=== PATIENT | female | born 1945 | race Caucasian/White ===

== ENCOUNTER 2018-09-11 08:50 | Day surgery (SDC) | payer MEDICARE, OTHER, SELFPAY ==
[2018-09-10 09:53] VITALS: BMI 42.0
[2018-09-11 09:24] LABS: Hematocrit 35.9 % (37-47); Hemoglobin 11.4 g/dl (12.0-15.0); Mean Corp Hgb Conc 31.8 g/gl (32-36); Mean Corpuscular Hgb 28.6 pg (27.0-32.0); Mean Corpuscular Volume 90.2 fL (81-99); Mean Platelet Vol. 11.4 fl (6.2-12.0); Platelet Count 195 K/mm3 (150-450); RBC Distribution Width CV 15.1 % (11.6-14.6); RBC Distribution Width SD 48.9 fl (35.1-43.9); Red Blood Count 3.98 M/mm3 (4.2-5.4)
[2018-09-11 09:26] LABS: Scan Indicated on CBC? Y/N NO
[2018-09-11 09:35] LABS: International Normalized Ratio 1.4; Partial Thromboplast Time 37.5 Seconds (24.1-36.2); Prothrombin Time (Protime)PT. 17.3 SECONDS (11.7-14.9)
[2018-09-11 09:46] LABS: Albumin, Serum 3.6 g/dL (3.2-5.0); BUN 46 mg/dL (7-18); BUN/Creat Ratio 7.2 RATIO (10-20); Calcium,Total 8.2 mg/dL (8.5-10.1); Chloride 96 mmol/L (98-107); Creatinine, Serum 6.43 mg/dL (0.55-1.02); EST Glomerular Filtration Rate 7 mL/min (>60); Est Glom Filt Rate - Afr Amer 8 mL/min (>60); Estimated Creatinine Clearance 6.63 ml/min; Glucose 180 mg/dL (74-106); Phosphorus 2.6 mg/dL (2.5-4.9); Potassium 3.3 mmol/L (3.5-5.1); Sodium Level 135 mmol/L (136-145)
--- NOTE | 2018-09-11 11:54 | PCM.OPRPT ---
Problem List (1) ESRD on hemodialysis Status: Acute (2) Malfunction of arteriovenous dialysis fistula Status: Acute Report of Operation Date of Procedure: 09/11/18 Pre-Operative Diagnosis: Malfunction AV fistula Post-Operative Diagnosis: The same Surgery/Procedure Performed:: 1. Ultrasound-guided access antegrade right AV fistula. #2 fistulogram with central venous imaging. #3 balloon venoplasty from the fistula to the graft with a 7 and 8 mm balloon. #4 balloon angioplasty from the graft to the outflow cephalic vein with an 8 mm balloon. 5. Balloon angioplasty proximal subclavian and innominate with a 10 and 12 mm balloon. Type of Anesthesia:: Sedation,Conscious Description of Procedure: Patient brought to the Contract Negotiation Specialist. Underwent the appropriate timeout consent.Underwent sedation. Prepped and draped in a sterile fashion. We then did ultrasound-guided access antegrade into the AV fistula below the area of the first narrowing. We got a Glidewire up put into sheath and then did a fistulogram. This showed moderate stenosis from the [place] fistula into the graft and then also from the graft back to the [place] fistula. We gave 3000 units of heparin. We ballooned both the segment with an 8 x 4 balloon for over 2-1/2 minutes. It was improved with better flow through the segments. We then image centrally in the proximal subclavian with severe stenosis and then also went near subtotal occlusion with severe stenosis in the mid innominate vein. Using the Kum[place] catheter and Glidewire we got through these 2 lesions. We then balloon them separately with a 10 mm balloon each for over 2 minutes. We then ballooned from the subclavian but mostly through the innominate lesion with a 12 mm balloon for over 3 minutes. Completion did show better flow through these areas. We then reimaged the lower area from the [place] fistula to the graft and re-ballooned that with a 7 x 2 balloon. Completion was better with some improved flow through it. We put a U stitch and then removed out the sheath held pressure with good hemostasis. Patient brought recovery stable condition. Sedation: This 72-year-old female underwent moderate sedation given by Dr. Lonnie Chavez. She has moderate EKG blood pressure and pulse ox. She is nonverbal to 30 minutes of the procedure. See the EMR for the complete record
--- NOTE | 2018-09-11 11:58 | OP.PCM_ITS ---
Problem List (1) ESRD on hemodialysis Status: Acute (2) Malfunction of arteriovenous dialysis fistula Status: Acute Report of Operation Date of Procedure: 09/11/18 Pre-Operative Diagnosis: Malfunction AV fistula Post-Operative Diagnosis: The same Surgery/Procedure Performed:: 1. Ultrasound-guided access antegrade right AV fistula. #2 fistulogram with central venous imaging. #3 balloon venoplasty from the fistula to the graft with a 7 and 8 mm balloon. #4 balloon angioplasty from the graft to the outflow cephalic vein with an 8 mm balloon. 5. Balloon angioplasty proximal subclavian and innominate with a 10 and 12 mm balloon. Type of Anesthesia:: Sedation,Conscious Description of Procedure: Patient brought to the Pocketed Spring Machine Operator. Underwent the appropriate timeout consent.Underwent sedation. Prepped and draped in a sterile fashion. We then did ultrasound-guided access antegrade into the AV fistula below the area of the first narrowing. We got a Glidewire up put into sheath and then did a fistulogram. This showed moderate stenosis from the tribe fistula into the graft and then also from the graft back to the tribe fistula. We gave 3000 units of heparin. We ballooned both the segment with an 8 x 4 balloon for over 2-1/2 minutes. It was improved with better flow through the segments. We then image centrally in the proximal subclavian with severe stenosis and then also went near subtotal occlusion with severe stenosis in the mid innominate vein. Using the Kumpe catheter and Glidewire we got through these 2 lesions. We then balloon them separately with a 10 mm balloon each for over 2 minutes. We then ballooned from the subclavian but mostly through the innominate lesion with a 12 mm balloon for over 3 minutes. Completion did show better flow through these areas. We then reimaged the lower area from the tribe fistula to the graft and re-ballooned that with a 7 x 2 balloon. Completion was better with some improved flow through it. We put a U stitch and then removed out the sheath held pressure with good hemostasis. Patient brought recovery stable condition. Sedation: This 72-year-old female underwent moderate sedation given by Dr. Lonnie Chavez. She has moderate EKG blood pressure and pulse ox. She is nonverbal to 30 minutes of the procedure. See the EMR for the complete record
== END 2018-09-11 13:00 | disposition home or self-care (01) ==
PROVIDERS: Referring Provider Surgery Vascular Surgery; Visit Provider Surgery Vascular Surgery
DX: T82.510A Breakdown (mechanical) of surgically created arteriovenous fistula, initial encounter (principal); T82.858D Stenosis of other vascular prosthetic devices, implants and grafts, subsequent encounter; I12.0 Hypertensive chronic kidney disease with stage 5 chronic kidney disease or end stage renal disease; N18.6 End stage renal disease; D63.8 Anemia in other chronic diseases classified elsewhere; E78.00 Pure hypercholesterolemia, unspecified; K21.9 Gastro-esophageal reflux disease without esophagitis; E66.9 Obesity, unspecified; E11.59 Type 2 diabetes mellitus with other circulatory complications; E07.9 Disorder of thyroid, unspecified; Z85.3 Personal history of malignant neoplasm of breast; Z99.2 Dependence on renal dialysis; Z68.41 Body mass index [BMI] 40.0-44.9, adult
CPT/HCPCS: 36901; 36415; 36902; 36907; 76937; 80069; 85027; 85610; 85730; 99152; 99153; J7040; Q9967; C1725; C1769; C1894

== ENCOUNTER 2019-10-22 06:48 | Day surgery (SDC) | payer MEDICARE, OTHER, SELFPAY ==
[2018-09-10 09:53] VITALS: BMI 42.0
[2019-10-21 12:11] VITALS: BMI 42.0
[2019-10-22 07:15] LABS: Hematocrit 41.1 % (37-47); Hemoglobin 13.4 g/dL (12.0-15.0); Mean Corp Hgb Conc 32.6 g/dL (32-36); Mean Corpuscular Hgb 31.2 pg (27.0-32.0); Mean Corpuscular Volume 95.8 fL (81-99); Mean Platelet Vol. 11.2 fl (6.2-12.0); Platelet Count 179 K/mm3 (150-450); RBC Distribution Width CV 13.4 % (11.6-14.6); RBC Distribution Width SD 47.2 fl (35.1-43.9); Red Blood Count 4.29 M/mm3 (4.2-5.4); White Blood Count 6.4 K/mm3 (4.4-11.0)
[2019-10-22 07:39] LABS: Albumin, Serum 2.9 g/dL (3.2-5.0); BUN 39 mg/dL (7-18); BUN/Creat Ratio 7.9 RATIO (10-20); Calcium,Total 9.6 mg/dL (8.5-10.1); Chloride 99 mmol/L (98-107); Creatinine, Serum 4.91 mg/dL (0.55-1.02); EST Glomerular Filtration Rate 9 mL/min (>60); Est Glom Filt Rate - Afr Amer 11 mL/min (>60); Estimated Creatinine Clearance 8.42 ml/min; Glucose 140 mg/dL (74-106); Phosphorus 2.9 mg/dL (2.5-4.9); Potassium 4.3 mmol/L (3.5-5.1); Sodium Level 130 mmol/L (136-145)
--- NOTE | 2019-10-22 08:49 | OP.PCM_ITS ---
Problem List (1) ESRD on hemodialysis Status: Acute Report of Operation Date of Procedure: 10/22/19 Pre-Operative Diagnosis: Malfunctioning AV fistula Post-Operative Diagnosis: Same Surgery/Procedure Performed:: 1. Ultrasound-guided access antegrade right AV fistula. 2. Fistulogram with central venous imaging. 3. Balloon venoplasty AV graft AV fistula with a 7 mm balloon. 4. Balloon venoplasty of the proximal subclavian and mid innominate vein with an 8 mm and 10 mm [place] Description of Procedure: Patient brought to the Furrier Designer. Underwent appropriate timeout consent. Unde rwent no sedation. Prepped and draped in a sterile fashion. We did ultrasound- guided access antegrade into the AV fistula below the graft. Put a Glidewire up and then a 6 [place] sheath. We did a fistulogram that showed some stenosis in the AV graft to the AV fistula. We then image centrally and had a severe stenosis in the proximal subclavian and a near subtotal occlusion in the mid innominate. We got the Glidewire through these areas and then ballooned the innominate with an 8 mm balloon for over a minute and a half and then the subclavian area for a minute and a half. She had some discomfort so we did another imaging that showed it to be improved and intact. We then ballooned both of these with a 10 mm [place] each for over a minute and a half. Completion was much improved with better flow noted through here. We then imaged back on the area of the fistula and graft and ballooned through the mid graft and the graft to fistulous outflow anastomosis. This is with a 7 x 100 balloon and ballooned it for over a minute and a half. Completion was improved and there is better flow noted. We then put a U stitch removed out the sheath tied this down held pressure with good hemostasis she was then brought to recovery stable condition.
== END 2019-10-22 10:45 | disposition home or self-care (01) ==
PROVIDERS: Referring Provider Surgery Vascular Surgery; Visit Provider Surgery Vascular Surgery
DX: T82.858D Stenosis of other vascular prosthetic devices, implants and grafts, subsequent encounter (principal); I12.0 Hypertensive chronic kidney disease with stage 5 chronic kidney disease or end stage renal disease; N18.6 End stage renal disease; Z99.2 Dependence on renal dialysis; E78.00 Pure hypercholesterolemia, unspecified; Z85.3 Personal history of malignant neoplasm of breast; K21.9 Gastro-esophageal reflux disease without esophagitis; E66.9 Obesity, unspecified; E11.59 Type 2 diabetes mellitus with other circulatory complications; E07.9 Disorder of thyroid, unspecified; D63.8 Anemia in other chronic diseases classified elsewhere
CPT/HCPCS: 36415; 36902; 76937; 80069; 85027; Q9967; C1725; C1769

== ENCOUNTER 2019-12-17 06:30 | Day surgery (SDC) | payer MEDICARE, OTHER, SELFPAY ==
[2019-10-21 12:11] VITALS: BMI 42.0
[2019-12-16 08:35] VITALS: BMI 42.0
[2019-12-17 06:51] LABS: Hematocrit 24.5 % (37-47); Hemoglobin 7.8 g/dL (12.0-15.0); Mean Corp Hgb Conc 31.8 g/dL (32-36); Mean Corpuscular Hgb 30.2 pg (27.0-32.0); Mean Platelet Vol. 10.8 fl (6.2-12.0); Platelet Count 318 K/mm3 (150-450); Red Blood Count 2.58 M/mm3 (4.2-5.4); White Blood Count 6.4 K/mm3 (4.4-11.0)
[2019-12-17 07:07] LABS: Albumin, Serum 2.6 g/dL (3.2-5.0); BUN 39 mg/dL (7-18); BUN/Creat Ratio 5.5 RATIO (10-20); Calcium,Total 8.6 mg/dL (8.5-10.1); Chloride 97 mmol/L (98-107); Creatinine, Serum 7.13 mg/dL (0.55-1.02); EST Glomerular Filtration Rate 6 mL/min (>60); Est Glom Filt Rate - Afr Amer 7 mL/min (>60); Glucose 100 mg/dL (74-106); Phosphorus 3.5 mg/dL (2.5-4.9); Potassium 4.9 mmol/L (3.5-5.1); Sodium Level 130 mmol/L (136-145)
--- NOTE | 2019-12-17 09:23 | OP.PCM_ITS ---
Problem List (1) ESRD on hemodialysis Status: Acute Report of Operation Date of Procedure: 12/17/19 Pre-Operative Diagnosis: Malfunctioning AV fistula Post-Operative Diagnosis: Same Surgery/Procedure Performed:: 1. Ultrasound-guided access antegrade right AV fistula. 2. Fistulogram with central venous imaging. 3. Balloon venoplasty from the innominate vein, through the subclavian and axillary vein with a 6 mm, 8 mm, and 10 mm balloons. Type of Anesthesia:: Sedation,Conscious Description of Procedure: Patient brought to the Adult Basic Education Instructor. Underwent appropriate timeout consent. Underwent sedation. Prepped and draped in a sterile fashion. We did ultrasound-guided access antegrade into the AV fistula on the right arm. Put a 6 Malay sheath in. Gave 3000 units of heparin. We did a fistulogram and imaged through this that showed the fistula, to the graft and then the graft back to the [place] vein anastomosis were patent and good flow. The dye was all held up and was not traveling all the way proximally. It appeared to be in a very large axillary subclavian vein with thrombus still within this. Some collateral flow around it. Appear to be obstructed with an occlusion at the probable proximal subclavian vein. We eventually able to get through this confirm we are into the innominate with good flow. We then put a stiff Glidewire and balloon through this entire area with a 6 x 200 [place] for 2 different inflations. Each inflation for over a minute and 1/2 to 2 minutes. We then balloon the area with an 8 mm balloon as well. There is improved flow through this still some narrowing at that subclavian. We then ballooned the subclavian and into the axillary with a 10 x 60 balloon with 3 different inflations. Completion now had some antegrade flow going through this but still the subclavian stenosis. We then ballooned the subclavian with a 10 x 4 Powerflex balloon for 2 minutes. Completion was improved and there is better flow going through this area. Still some chronic thrombus noted around the area. We then put a U stitch removed out the sheath and lowered her pressure with good hemostasis. Plan. We will see her back in 3 weeks with another fistulogram and probable stent the subclavian area. Try to see if she can autolyzed and improve a little bit of flow around and through this area, to limit how much we have the stent. Sedation: This 74-year-old female underwent moderate sedation given by Dr. Lonnie Chavez. She was monitored EKG blood pressure and pulse ox for over the 30 minutes of the procedure.
== END 2019-12-17 11:25 | disposition home or self-care (01) ==
PROVIDERS: Referring Provider Surgery Vascular Surgery; Visit Provider Surgery Vascular Surgery
DX: T82.858D Stenosis of other vascular prosthetic devices, implants and grafts, subsequent encounter (principal); N18.6 End stage renal disease; Z99.2 Dependence on renal dialysis; I12.0 Hypertensive chronic kidney disease with stage 5 chronic kidney disease or end stage renal disease; E66.9 Obesity, unspecified; E11.59 Type 2 diabetes mellitus with other circulatory complications; E78.00 Pure hypercholesterolemia, unspecified; Z85.3 Personal history of malignant neoplasm of breast; E07.9 Disorder of thyroid, unspecified; K21.9 Gastro-esophageal reflux disease without esophagitis; D63.8 Anemia in other chronic diseases classified elsewhere; F17.210 Nicotine dependence, cigarettes, uncomplicated
CPT/HCPCS: 36415; 36902; 36907; 76937; 80069; 85027; 99152; 99153; J7040; Q9967; C1725; C1769; C1887

== ENCOUNTER 2020-01-07 06:44 | Day surgery (SDC) | payer MEDICARE, OTHER, SELFPAY ==
[2019-12-16 08:35] VITALS: BMI 42.0
[2020-01-06 09:09] VITALS: BMI 42.0
--- NOTE | 2020-01-07 08:43 | PCM.OPRPT ---
Problem List (1) Malfunction of arteriovenous dialysis fistula Status: Acute Report of Operation Date of Procedure: 01/07/20 Pre-Operative Diagnosis: Malfunctioning AV fistula Post-Operative Diagnosis: The same Surgery/Procedure Performed:: 1. Ultrasound-guided access antegrade right AV graft. 2. Fistulogram with central venous imaging. 3. Balloon venoplasty of the subclavian to innominate vein and proximal innominate vein with an 8 mm and 10 mm balloon. Also with an 8 x 2 cutting balloon Description of Procedure: Patient brought to the Juvenile Corrections Officer. Underwent appropriate timeout consent. Underwent no sedation. Prepped and draped in a sterile fashion. We did ultrasound-guided access antegrade into the AV graft. Put a Glidewire up and then a 6 [place]altese sheath. We then did a fistulogram that showed the graft through the [place] fistula was widely patent with much better flow. There is also much better flow through the subclavian vein. Severe stenosis at the subclavian to the innominate in the mid innominate vein. We did a Glidewire down through this. We first ballooned both with a 10 x 4 balloon for over 2-1/2 minutes each inflation. There was some improved flow there with try to expand this little further. We ballooned the proximal on the subclavian with a 8 x 4 balloon over inflating it for 3 to 3-1/2 minutes. There is a little bit better flow noted. But we switched to a 7 [place]ese sheath and then an 018 wire and ballooned these areas with a cutting balloon for 4 different inflations. Each for over 2 minutes. Completion was improved there was better flow noted but still a moderate narrowing just at this focal area. Appears to be more con of into that area of the thoracic outlet and concerned about put in a stent that it would to still be pinched in there. The left it appears that it looks like it is going better and will just need intermittent ballooning. Will need to try to start using the graft for hemodialysis.
== END 2020-01-07 10:05 | disposition home or self-care (01) ==
LOC: CLSP 06:45
PROVIDERS: Referring Provider Surgery Vascular Surgery; Visit Provider Surgery Vascular Surgery
DX: T82.858D Stenosis of other vascular prosthetic devices, implants and grafts, subsequent encounter (principal); I12.0 Hypertensive chronic kidney disease with stage 5 chronic kidney disease or end stage renal disease; N18.6 End stage renal disease; E66.9 Obesity, unspecified; E11.59 Type 2 diabetes mellitus with other circulatory complications; E78.00 Pure hypercholesterolemia, unspecified; Z85.3 Personal history of malignant neoplasm of breast; Z99.2 Dependence on renal dialysis; E07.9 Disorder of thyroid, unspecified; D63.8 Anemia in other chronic diseases classified elsewhere; K21.9 Gastro-esophageal reflux disease without esophagitis; Z87.891 Personal history of nicotine dependence; F32.9 Major depressive disorder, single episode, unspecified; F41.9 Anxiety disorder, unspecified
CPT/HCPCS: 36902; 76937; C1769; J7040; Q9967; C1725; C1894

== ENCOUNTER 2021-01-19 07:17 | Day surgery (SDC) | payer MEDICARE, OTHER, SELFPAY ==
[2021-01-18 08:37] VITALS: BMI 42.0
[2021-01-19 07:35] LABS: Hematocrit 40.7 % (37-47); Hemoglobin 11.7 g/dL (12.0-15.0); Mean Corp Hgb Conc 28.7 g/dL (32-36); Mean Corpuscular Hgb 24.7 pg (27.0-32.0); Mean Corpuscular Volume 85.9 fL (81-99); Platelet Count 202 K/mm3 (150-450); RBC Distribution Width CV 18.6 % (11.6-14.6); RBC Distribution Width SD 58.3 fl (35.1-43.9); Red Blood Count 4.74 M/mm3 (4.2-5.4); White Blood Count 5.6 K/mm3 (4.4-11.0)
[2021-01-19 08:23] LABS: BUN 42 mg/dL (7-18); BUN/Creat Ratio 9.6 RATIO (10-20); Calcium,Total 8.9 mg/dL (8.5-10.1); Chloride 95 mmol/L (98-107); Creatinine, Serum 4.38 mg/dL (0.55-1.02); EST Glomerular Filtration Rate 10 mL/min (>60); Est Glom Filt Rate - Afr Amer 13 mL/min (>60); Estimated Creatinine Clearance 9.29 ml/min; Glucose 112 mg/dL (74-106); Phosphorus 3.6 mg/dL (2.5-4.9); Sodium Level 135 mmol/L (136-145)
--- NOTE | 2021-01-19 08:49 | OP.PCM_ITS ---
Problems Associated Problem List Diagnoses (1) ESRD on hemodialysis: Report of Operation Date of Procedure: 01/19/21 Pre-Operative Diagnosis: Malfunctioning AV fistula Post-Operative Diagnosis: This same Surgery/Procedure Performed:: 1. Ultrasound-guided access antegrade right AV graft to the AV fistula. 2. Fistulogram with central venous imaging. 3. Balloon venoplasty of the AV graft to the AV fistula with an 8 mm balloon. 4. Balloon venoplasty of the subclavian through the innominate with an 8 and then a 12 mm balloon Surgeon: Lonnie Chavez Type of Anesthesia: IV Sedation Description of Procedure: Patient brought to the Assistant Oceanographer. Underwent appropriate timeout consent. Underwent sedation. Was prepped and draped in a sterile fashion. We did ultrasound-guided access antegrade into the AV graft. This showed the graft in the covered stent graft were widely patent with great flow. The distal anastomosis with some mild to moderate stenosis. And then moderate narrowing from the subclavian into the innominate. Much improved from both prior. We got a wire through these areas and ballooned both lesions with the 8 x 80 balloon for over 2 minutes each spot. We then ballooned the central with a 12 x 40 balloon for over 2-1/2 minutes. Completion was markedly improved with better flow through both of these. Especially centrally. We then put a U stitch removed out the sheath and wire held pressure with good hemostasis. Patient then brought to recovery stable condition. Sedation: This 75-year-old female underwent moderate sedation given by Dr. Lonnie Chavez. She was monitored EKG blood pressure and pulse ox for over the 30 minutes of the procedure and postoperatively. See the EMR for the complete record.
== END 2021-01-19 10:10 | disposition home or self-care (01) ==
LOC: CLSP 07:18
PROVIDERS: Referring Provider Surgery Vascular Surgery; Visit Provider Surgery Vascular Surgery
DX: T85.8 Other specified complications of internal prosthetic devices, implants and grafts, not elsewhere classified (principal); I12.0 Hypertensive chronic kidney disease with stage 5 chronic kidney disease or end stage renal disease; N18.6 End stage renal disease; Z99.2 Dependence on renal dialysis; F32.9 Major depressive disorder, single episode, unspecified; F41.9 Anxiety disorder, unspecified; E11.9 Type 2 diabetes mellitus without complications; E78.00 Pure hypercholesterolemia, unspecified; K21.9 Gastro-esophageal reflux disease without esophagitis; E66.9 Obesity, unspecified; E11.59 Type 2 diabetes mellitus with other circulatory complications; E07.9 Disorder of thyroid, unspecified; D63.8 Anemia in other chronic diseases classified elsewhere; Z85.3 Personal history of malignant neoplasm of breast
CPT/HCPCS: 36415; 36902; 36907; 76937; 80069; 85027; 99152; 99153; J7040; Q9967; A4216; C1725; C1769; C1894